=== PATIENT | male | born 1965 | race Caucasian/White ===

== ENCOUNTER 2024-10-26 18:16 | Emergency (ER) | payer SELFPAY ==
[2024-10-26 18:20] VITALS: BP 137/96
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
[2024-10-26] MEDS: PERCOCET 5/325 1 TABLET PO (19:34)
== END 2024-10-26 19:41 | disposition home or self-care (01) ==
LOC: EMR 18:16
PROVIDERS: EMERGENCY PHYSICIAN Emergency Medicine
DX: S82.51XA Displaced fracture of medial malleolus of right tibia, initial encounter for closed fracture (principal); S20.211A Contusion of right front wall of thorax, initial encounter; V89.2XXA Person injured in unspecified motor-vehicle accident, traffic, initial encounter; Y92.410 Unspecified street and highway as the place of occurrence of the external cause; Z59.71 Insufficient health insurance coverage
CPT/HCPCS: 99283; 71101; 73610

== ENCOUNTER → 2025-03-07 11:41 | Outpatient (REF) | payer OTHER, SELFPAY | LOC: HWRAD 11:41 | PROVIDERS: ATTENDING PHYSICIAN Student in an Organized Health Care Education/Training Program | DX: S82.51XS Displaced fracture of medial malleolus of right tibia, sequela (principal); S92.151 Displaced avulsion fracture (chip fracture) of right talus; Z87.828 Personal history of other (healed) physical injury and trauma | CPT/HCPCS: 73610 ==